=== PATIENT | female | born 1955 | race Caucasian/White ===

== ENCOUNTER 2016-11-26 03:49 | Inpatient (IN) | payer MEDICAID, OTHER ==
[~2016-11-26] VITALS: Ht 152.4 cm; Wt 79.4 kg
[~2016-11-26 03:49] MED LIST: FERR-63 PO; FOLI-43 PO; HYDR12.529 PO; MULT-348 PO
[2016-11-26] MEDS ORDERED: PANTOPRAZOLE SODIUM 40 MG/VIAL IV STA (04:26)
[2016-11-26] MEDS ORDERED: SODIUM CHLORIDE 0.9% 1000ML BAG (SEPSIS BOLUS) IV ONE (04:30)
[2016-11-26 05:23] LABS: BASOPHILS % 0.5 % (0.0-2.0); HEMATOCRIT. 28.6 % (36.0-48.0); HEMOGLOBIN. 9.5 g/dL (12.0-16.0); LYMPHOCYTES % 26.3 % (20.0-50.0); MEAN CORPUSCULAR HEMOGLOBIN 26.5 pg (28.0-32.0); MEAN CORPUSCULAR HGB CONC 33.1 g/dL (31.0-37.0); MEAN PLATELET VOLUME 8.5 fl (7.4-10.4); MONOCYTES % 8.9 % (2.0-8.0); NEUTROPHILS % 63.3 % (40.0-76.0); PLATELET 128 x1000/uL (130-400); RED BLOOD CELL COUNT 3.58 mill/uL (4.2-5.4); RED CELL DISTRIBUTION WIDTH 15.9 % (11.6-14.6); WHITE BLOOD COUNT 6.2 x1000/uL (4.5-11.0)
[2016-11-26 05:29] LABS: INR 1.2; PARTIAL THROMBOPLASTIN TIME 24.4 sec (24.0-34.0)
[2016-11-26 05:43] LABS: ALANINE AMINOTRANSFERASE 17 IU/L (13-61); ALBUMIN 2.9 g/dL (3.4-5.0); ANION GAP 12; CALCIUM 8.5 mg/dL (8.5-10.1); CARBON DIOXIDE 24 mEq/L (21-32); CHLORIDE 107 mEq/L (98-107); INDEX HEMOLYSI 1 (1-3); INDEX ICTERIC 1 (1-4); INDEX LIPEMIC 1 (1-3); LIPASE 205 IU/L (73-393); TROPONIN I < 0.02 ng/mL (0.00-0.04); UREA NITROGEN BLOOD 20 mg/dL (7-21); eGFR > 60 mL/min (>60)
[2016-11-26] MEDS ORDERED: OCTREOTIDE 1,000 MCG in SODIUM CHLORIDE 0.9% 100 ML IV ONE (06:15)
[2016-11-26] MEDS ORDERED: OCTREOTIDE 1,000 MCG in SODIUM CHLORIDE 0.9% 98 ML IV ONE (06:15)
[2016-11-26] MEDS ORDERED: OCTREOTIDE ACETATE 50 MCG/ML 1ML IV SCH (06:16)
[2016-11-26] MEDS ORDERED: PANTOPRAZOLE SODIUM 40 MG/VIAL IV ONE (09:00)
[2016-11-26] MEDS ORDERED: GUAIFENESIN 200MG/10ML SUGAR FREE UDC PO PRN (11:15)
[2016-11-26] MEDS ORDERED: LORAZEPAM 2MG/ML CPJ IV PRN (11:15)
[2016-11-26] MEDS ORDERED: CLONIDINE 0.1MG TABLET PO PRN (11:15)
[2016-11-26] MEDS ORDERED: MAGNESIUM/ALUMINUM HYDROXIDE/SIMETHICONE 30ML UDC PO PRN (11:15)
[2016-11-26] MEDS ORDERED: NA PHOS,M-B/NA PHOS,DI-BA ENEMA 118ML PR PRN (11:15)
[2016-11-26] MEDS ORDERED: DIPHENHYDRAMINE 50MG/ML VIAL IV PRN (11:15)
[2016-11-26] MEDS ORDERED: TRAMADOL 50MG TABLET PO PRN (11:15)
[2016-11-26] MEDS ORDERED: ACETAMINOPHEN 325MG TABLET PO PRN (11:15)
[2016-11-26 11:30] VITALS: BP 110/61
[2016-11-26] MEDS: PROPRANOLOL HCL 10MG TABLET PO SCH ×2 (14:00→21:00)
[2016-11-26] MEDS: ENOXAPARIN 40MG/0.4ML SYR SUBCUT SCH (15:23)
[2016-11-26 16:00] VITALS: BP 100/58
[2016-11-26] MEDS: DEXT 5%/0.45% NACL 1000ML 1,000 ML IV SCH ×2 (17:02→21:15)
[2016-11-26 20:00] VITALS: BP 100/57
[2016-11-26] MEDS ORDERED: ZOLPIDEM TARTRATE 5MG TABLET PO PRN (21:00)
[2016-11-26] MEDS: PANTOPRAZOLE SODIUM 40 MG/VIAL IV SCH (21:15)
[2016-11-27] VITALS (10 sets, daily range): BP systolic 101–118; BP diastolic 58–71
[2016-11-27] MEDS ORDERED: OCTREOTIDE 1,000 MCG in SODIUM CHLORIDE 0.9% 98 ML IV SCH ×4 (02:00)
[2016-11-27] MEDS: DEXT 5%/0.45% NACL 1000ML 1,000 ML IV SCH ×2 (05:51→21:22)
[2016-11-27 06:40] LABS: BASOPHILS % 0.5 % (0.0-2.0); DIFFERENTIAL COMMENT 0; EOSINOPHILS % 2.8 % (0.0-5.0); HEMATOCRIT. 22.4 % (36.0-48.0); HEMOGLOBIN. 7.4 g/dL (12.0-16.0); LYMPHOCYTES % 46.2 % (20.0-50.0); MEAN CORPUSCULAR HEMOGLOBIN 26.2 pg (28.0-32.0); MEAN CORPUSCULAR HGB CONC 32.9 g/dL (31.0-37.0); MEAN CORPUSCULAR VOLUME 79.7 fL (81.0-99.0); MEAN PLATELET VOLUME 8.9 fl (7.4-10.4); MONOCYTES % 8.4 % (2.0-8.0); NEUTROPHILS % 42.1 % (40.0-76.0); PLATELET 104 x1000/uL (130-400); RED BLOOD CELL COUNT 2.81 mill/uL (4.2-5.4); RED CELL DISTRIBUTION WIDTH 15.8 % (11.6-14.6); WHITE BLOOD COUNT 3.7 x1000/uL (4.5-11.0)
[2016-11-27] MEDS: ENOXAPARIN 40MG/0.4ML SYR SUBCUT SCH (08:29)
[2016-11-27] MEDS: PROPRANOLOL HCL 10MG TABLET PO SCH ×2 (08:30→21:00)
[2016-11-27] MEDS: PANTOPRAZOLE SODIUM 40 MG/VIAL IV SCH ×2 (08:30→21:20)
[2016-11-28] VITALS: BP 110/68
[2016-11-28 04:00] VITALS: BP 108/66
[2016-11-28] MEDS: DEXT 5%/0.45% NACL 1000ML 1,000 ML IV SCH (06:04)
[2016-11-28 08:00] VITALS: BP 126/71
[2016-11-28] MEDS: PROPRANOLOL HCL 10MG TABLET PO SCH ×2 (08:52→20:44)
[2016-11-28] MEDS: PANTOPRAZOLE SODIUM 40 MG/VIAL IV SCH ×2 (08:52→21:34)
[2016-11-28 12:00] VITALS: BP 128/77
[2016-11-28 15:42] LABS: HEMATOCRIT 27.8 % (36.0-48.0)
[2016-11-28 20:00] VITALS: BP 108/60
[2016-11-29] VITALS (7 sets, daily range): BP systolic 104–154; BP diastolic 58–72
[2016-11-29] MEDS: DEXT 5%/0.45% NACL 1000ML 1,000 ML IV SCH ×3 (00:20→23:50)
[2016-11-29 03:30] LABS: HEMATOCRIT 26.3 % (36.0-48.0); HEMOGLOBIN 8.8 g/dL (12.0-16.0)
[2016-11-29] MEDS: ONDANSETRON HCL 4MG/2ML VIAL IV PRN ×2 (06:10→10:16)
[2016-11-29] MEDS: PANTOPRAZOLE SODIUM 40 MG/VIAL IV SCH ×2 (10:16→20:53)
[2016-11-29] MEDS: PROPRANOLOL HCL 10MG TABLET PO SCH ×2 (10:16→20:41)
[2016-11-29 11:31] LABS: HEMATOCRIT 28.3 % (36.0-48.0); HEMOGLOBIN 9.3 g/dL (12.0-16.0)
[2016-11-30 04:00] VITALS: BP 108/78
[2016-11-30 08:00] VITALS: BP 134/77
[2016-11-30] MEDS ORDERED: FENTANYL CITRATE/PF 50MCG/ML 2ML VIAL ONE (11:07)
[2016-11-30] MEDS ORDERED: MIDAZOLAM HCL 5 MG/5 ML VIAL ONE (11:07)
[2016-11-30] MEDS ORDERED: FENTANYL CITRATE/PF 50MCG/ML 2ML VIAL IV PRN (11:16)
[2016-11-30] MEDS ORDERED: MIDAZOLAM HCL 5 MG/5 ML VIAL IV PRN (11:16)
[2016-11-30] MEDS ORDERED: SIMETHICONE 40 MG/0.6 ML 30ML ONE (11:18)
[2016-11-30] MEDS ORDERED: SODIUM CHLORIDE 0.9% 10ML VIAL ONE (11:18)
[2016-11-30 12:30] VITALS: BP 139/75
[2016-11-30] MEDS: PANTOPRAZOLE SODIUM 40 MG/VIAL IV SCH (12:43)
[2016-11-30] MEDS: PROPRANOLOL HCL 10MG TABLET PO SCH (12:47)
[2016-11-30 14:26] VITALS: BP 139/75
== END 2016-11-30 15:20 | disposition home or self-care (01) | DRG 242 ==
LOC: ER 03:57 → 8WST 08:51
PROVIDERS: ADMIT Internal Medicine; ATTEND Internal Medicine
PROC: 30233N1 Transfusion of Nonautologous Red Blood Cells into Peripheral Vein, Percutaneous Approach (ICD-10-PCS; principal; 2016-11-27)
PROC: 0DJ08ZZ Inspection of Upper Intestinal Tract, Via Natural or Artificial Opening Endoscopic (ICD-10-PCS; 2016-11-30)
DX: I85.01 Esophageal varices with bleeding (principal); K76.6 Portal hypertension; D69.59 Other secondary thrombocytopenia; E44.0 Moderate protein-calorie malnutrition; K70.30 Alcoholic cirrhosis of liver without ascites; D62 Acute posthemorrhagic anemia; K29.60 Other gastritis without bleeding; I86.4 Gastric varices; I10 Essential (primary) hypertension; K76.0 Fatty (change of) liver, not elsewhere classified; K80.20 Calculus of gallbladder without cholecystitis without obstruction; K31.89 Other diseases of stomach and duodenum; D50.9 Iron deficiency anemia, unspecified; E86.0 Dehydration; K44.9 Diaphragmatic hernia without obstruction or gangrene; F10.10 Alcohol abuse, uncomplicated; F32.9 Major depressive disorder, single episode, unspecified; Z91.5 Personal history of self-harm; Z68.34 Body mass index [BMI] 34.0-34.9, adult; Z87.11 Personal history of peptic ulcer disease
CPT/HCPCS: 36415; 71010; 76700; 80053; 83036; 83690; 84484; 85014; 85018; 85025; 85610; 85730; 86850; 86900; 86920; 93005; 96361; 96365; 96375; 99291; A4216; C9113; J1650; J2250; J2354; J2405; J3010; J7030; J7040; J7050; P9016

== ENCOUNTER 2018-03-03 01:41 | Emergency (ER) | payer MEDICAID, OTHER ==
[~2018-03-03] VITALS: Ht 152.4 cm; Wt 82.0 kg
[2018-03-03 03:27] VITALS: BP 128/105
== END 2018-03-03 04:17 | disposition home or self-care (01) ==
LOC: ER 01:41
DX: I10 Essential (primary) hypertension (principal); R11.10 Vomiting, unspecified
CPT/HCPCS: 99283

== ENCOUNTER 2023-05-31 04:03 | Inpatient (IN) | payer MEDICARE, MEDICAID ==
[~2023-05-31] VITALS: Ht 157.5 cm; Wt 73.0 kg
[2023-05-31 04:51] LABS: BASOPHILS % 0.8 % (0.0-2.0); EOSINOPHILS % 3.1 % (0.0-5.0); HEMATOCRIT. 29.4 % (36.0-48.0); HEMOGLOBIN. 10.1 g/dL (12.0-16.0); LYMPHOCYTES % 33.5 % (20.0-50.0); MEAN CORPUSCULAR HEMOGLOBIN 33.3 pg (28.0-32.0); MEAN CORPUSCULAR HGB CONC 34.3 g/dL (31.0-37.0); MEAN CORPUSCULAR VOLUME 97.2 fL (81.0-99.0); MEAN PLATELET VOLUME 8.8 fl (7.4-10.4); MONOCYTES % 10.3 % (2.0-8.0); NEUTROPHILS % 52.3 % (40.0-76.0); PLATELET 79 x1000/uL (130-400); RED BLOOD CELL COUNT 3.02 mill/uL (4.2-5.4); RED CELL DISTRIBUTION WIDTH 21.4 % (11.6-14.6); WHITE BLOOD COUNT 4.7 x1000/uL (4.5-11.0)
[2023-05-31 05:01] LABS: CHLORIDE 111 mEq/L (98-107); INDEX HEMOLYSI 1 (1-3); INDEX ICTERIC 2 (1-4); INDEX LIPEMIC 1 (1-3); SODIUM 136 mEq/L (136-145)
[2023-05-31 05:10] LABS: ACETAMINOPHEN <2 ug/mL ug/mL (10-30); ALANINE AMINOTRANSFERASE 31 IU/L (13-61); ALBUMIN 2.2 g/dL (3.4-5.0); ASPARTATE AMINOTRANSFERASE 65 IU/L (15-37); CALCIUM 8.4 mg/dL (8.5-10.1); CARBON DIOXIDE 20 mEq/L (21-32); CREATININE 1.4 mg/dL (0.6-1.3); ETHANOL BLOOD < 10 mg/dL (<10); GLUCOSE 107 mg/dL (70-105); PROTEIN TOTAL 7.4 g/dL (6.0-8.3); UREA NITROGEN BLOOD 21 mg/dL (7-21)
[2023-05-31 05:36] LABS: AMMONIA 268 uMol/L (<32); POTASSIUM 6.2 mEq/L (3.5-5.1)
[2023-05-31 05:54] LABS: TROPONIN I HIGH SENSITIVITY 16 ng/L (<54)
[2023-05-31] MEDS ORDERED: LACTULOSE ENEMA 1,000ML BOTTLE PR STA (06:06)
[2023-05-31] MEDS ORDERED: SODIUM POLYSTYRENE SULFONATE 15 G/60 ML BOT PO ONE (06:15)
[2023-05-31] MEDS ORDERED: INSULIN REGULAR (HUMULIN R) 300UNITS/3ML VIAL IV ONE (06:15)
[2023-05-31] MEDS ORDERED: ALBUTEROL (0.083%) 2.5MG/3ML NEB HHN ONE (06:15)
[2023-05-31] MEDS ORDERED: CALCIUM CHLORIDE 1GM/10ML SYR IV ONE (06:15)
[2023-05-31] MEDS ORDERED: DEXTROSE 50% WATER 50ML SYRINGE IV ONE (06:15)
[2023-05-31 06:34] LABS: CLARITY URINE CLEAR (CLEAR); COLOR URINE YELLOW (YELLOW); GLUCOSE URINE NEGATIVE (NEGATIVE); KETONES URINE NEGATIVE (NEGATIVE); LEUKOCYTE ESTERASE URINE NEGATIVE (NEGATIVE); NITRITE URINE NEGATIVE (NEGATIVE); OCCULT BLOOD URINE NEGATIVE (NEGATIVE); PROTEIN URINE NEGATIVE (NEGATIVE); SPECIFIC GRAVITY URINE 1.006 (1.005-1.030)
[2023-05-31 06:46] LABS: *AMPHETAMINES SCREEN URINE NEGATIVE (NEGATIVE); *BARBITURATES SCREEN URINE NEGATIVE (NEGATIVE); *BENZODIAZEPINES SCREEN URINE NEGATIVE (NEGATIVE); *COCAINE SCREEN URINE NEGATIVE (NEGATIVE); CANNABINOID URINE SCREEN NEGATIVE (NEGATIVE); ECSTASY MDMA SCREEN URINE NEGATIVE (NEGATIVE); METHADONE URINE SCREEN NEGATIVE (NEGATIVE); OPIATES URINE SCREEN NEGATIVE (NEGATIVE); PHENCYCLIDINE URINE SCREEN NEGATIVE (NEGATIVE)
[2023-05-31 06:47] VITALS: PULSE 52; RESP 18; O2SAT 99
[2023-05-31] MEDS ORDERED: LACTULOSE 20G/30ML UDC PO ONE (09:15)
[2023-05-31 11:14] VITALS: BP 91/32; PULSE 55; RESP 16; TEMP 97
[2023-05-31] MEDS ORDERED: ONDANSETRON HCL 4MG/2ML INJ IV PRN (11:45)
[2023-05-31] MEDS: LACTULOSE 20G/30ML UDC PO SCH ×2 (11:46→20:41)
[2023-05-31 11:57] LABS: BG BASE EXCESS -7.5 mmol/L (-2.0-2.0); BG CARBOXYHEMOGLOBIN 0.1 % (0.5-1.5); BG DEOXYHEMOGLOBIN 3.4 % (0.0-5.0); BG FRACTION INSPIRED OXYGEN 21; BG HCO3 ACT 16.8 mmol/L (22.0-26.0); BG METHEMOGLOBIN 0.2 % (0.0-1.5); BG OXYGEN SATURATION 96.6 % (92.0-98.5); BG OXYHEMOGLOBIN 96.3 % (94.0-97.0); BG PCO2 30.2 mmHg (35.0-45.0); BG PH 7.363 (7.350-7.450); BG PO2 99.3 mmHg (75.0-100.0); BG SAMPLE SITE LEFT RADIAL; BG TOTAL HEMOGLOBIN 11.1 g/dL (12.0-18.0); BG VENT MODE ROOM AIR
[2023-05-31 12:00] VITALS: BP 91/32; PULSE 47; RESP 16; TEMP 97.7
[2023-05-31] MEDS ORDERED: SODIUM CHLORIDE 0.9% 250 ML IV ONE (12:00)
[2023-05-31 12:51] LABS: POTASSIUM 5.6 mEq/L (3.5-5.1)
[2023-05-31] MEDS: SODIUM CHLORIDE 0.9% 1,000 ML IV SCH (13:51)
[2023-05-31] MEDS: RIFAXIMIN 550 MG TABLET PO SCH ×2 (13:51→20:41)
[2023-05-31] MEDS ORDERED: CEFTRIAXONE 1GM PREMIX 50 ML IV SCH (14:00)
[2023-05-31] MEDS: ACETAMINOPHEN 325MG TABLET PO PRN (15:53)
[2023-05-31 16:00] VITALS: BP 130/68; PULSE 68; RESP 15; TEMP 96
[2023-05-31] MEDS ORDERED: CEFTRIAXONE 1,000 MG in DEXTROSE 5% WATER 50 ML IV SCH (16:00)
[2023-05-31 20:00] VITALS: BP 106/47; PULSE 70; RESP 20; TEMP 97.9
[2023-06-01] VITALS: BP 108/55; PULSE 69; RESP 14; TEMP 97.8
[2023-06-01] MEDS: ACETAMINOPHEN 325MG TABLET PO PRN (00:31)
[2023-06-01] MEDS: SODIUM CHLORIDE 0.9% 1,000 ML IV SCH (00:32)
[2023-06-01 04:00] VITALS: BP 110/48; PULSE 73; RESP 13; TEMP 97.7
[2023-06-01] MEDS: LACTULOSE 20G/30ML UDC PO SCH ×2 (04:37→12:50)
[2023-06-01 08:13] LABS: BASOPHILS % 0.4 % (0.0-2.0); EOSINOPHILS % 1.8 % (0.0-5.0); HEMATOCRIT. 30.5 % (36.0-48.0); HEMOGLOBIN. 10.1 g/dL (12.0-16.0); LYMPHOCYTES % 20.4 % (20.0-50.0); MEAN CORPUSCULAR HEMOGLOBIN 33.3 pg (28.0-32.0); MEAN CORPUSCULAR HGB CONC 33.1 g/dL (31.0-37.0); MEAN CORPUSCULAR VOLUME 100.7 fL (81.0-99.0); MEAN PLATELET VOLUME 9.4 fl (7.4-10.4); MONOCYTES % 7.4 % (2.0-8.0); PLATELET 75 x1000/uL (130-400); RED BLOOD CELL COUNT 3.03 mill/uL (4.2-5.4); WHITE BLOOD COUNT 6.7 x1000/uL (4.5-11.0)
[2023-06-01 08:19] LABS: AMMONIA 19 uMol/L (<32)
[2023-06-01 08:20] LABS: DIFFERENTIAL COMMENT 1; POTASSIUM 4.7 mEq/L (3.5-5.1)
[2023-06-01 08:21] LABS: ADD RBC MORPHOLOGY YES
[2023-06-01 08:26] LABS: CALCIUM 9.5 mg/dL (8.5-10.1); CREATININE 1.2 mg/dL (0.6-1.3)
[2023-06-01] MEDS: RIFAXIMIN 550 MG TABLET PO SCH (09:19)
[2023-06-01] MEDS ORDERED: SODIUM CHLORIDE 0.9% 250 ML IV ONE (11:15)
[2023-06-01 12:37] LABS: ANISOCYTOSIS 2+; PLATELET ESTIMATE DECREASED
[2023-06-01 12:38] LABS: TARGET CELLS FEW
[2023-06-01 13:27] VITALS: BP 119/62; PULSE 84; TEMP 97.7; O2SAT 99
== END 2023-06-01 22:36 | disposition home or self-care (01) | DRG 432 ==
LOC: ER 04:03 → 7WST 06:53 → 5EST 13:05
PROVIDERS: ADMIT Internal Medicine; ATTEND Internal Medicine
DX: K70.30 Alcoholic cirrhosis of liver without ascites (principal); E43 Unspecified severe protein-calorie malnutrition; G93.41 Metabolic encephalopathy; N17.0 Acute kidney failure with tubular necrosis; E87.5 Hyperkalemia; E66.9 Obesity, unspecified; D69.6 Thrombocytopenia, unspecified; D64.9 Anemia, unspecified; I10 Essential (primary) hypertension; Z79.899 Other long term (current) drug therapy; Z68.29 Body mass index [BMI] 29.0-29.9, adult
CPT/HCPCS: 36415; 36600; 71045; 80048; 80053; 80305; 80307; 80320; 80329; 81003; 82140; 82375; 82805; 82962; 84132; 84484; 85025; 94640; 99291; A6261; J0696; J1815; J2405; J3490; J7030; J7060; G0480